=== PATIENT | female | born 1975 | race Caucasian/White ===

== ENCOUNTER 2018-11-30 12:05 | Outpatient (CLI) | payer BC | END 2018-11-30 12:06 | disposition home or self-care (01) | LOC: BICMAMMO 12:05 | PROVIDERS: ATTEND Obstetrics & Gynecology | DX: Z12.31 Encounter for screening mammogram for malignant neoplasm of breast (principal) | CPT/HCPCS: 77063; 77067 ==

== ENCOUNTER 2020-09-10 13:02 | Outpatient (CLI) | payer BC ==
--- NOTE | 2020-09-10 14:09 | CT ---
CT ABDOMEN AND PELVIS WITHOUT CONTRAST: 09/10/20 INDICATIONS: Hematuria. Comparison made to CT abdomen and pelvis 11/16/18 from [facility]. FINDINGS: Lung bases clear. Liver, spleen, and pancreas unremarkable. Stomach and duodenum unremarkable. Adrenal glands normal. Review of the kidneys show numerous bilateral nonobstructing renal calculi similar in appearance to t he prior exam. The largest on the right kidney is in the lower pole collecting structures measuring 7 to 8 mm. there is a 7 to 8 mm calculus in the lower pole collecting structures of the left kidney. N umerous smaller calculi are seen bilaterally. No hydronephrosis. The ureters are normal caliber bilaterally. No evidence of ureteral calculus ident ified. The urinary bladder is mildly distended and unremarkable. Small bowel loops appear normal caliber. Colon unremarkable. Aorta normal caliber. No adenopathy or f ree fluid. Images through the pelvis show evidence of hysterectomy. Osseous structures are unremarkable. Postoperative changes are noted at the L5-S1 level. IMPRESSION: Numerous bilateral nonobstructing renal calculi. No evidence of ureteral calculus or obstruction. POS: AGW
== END 2020-09-10 13:03 | disposition home or self-care (01) ==
LOC: BICCT 13:02
PROVIDERS: ATTEND Urology
DX: R31.9 Hematuria, unspecified (principal); N20.0 Calculus of kidney
CPT/HCPCS: 36415; 74176; 80048; 81001; 85025; 87086

== ENCOUNTER 2020-09-18 07:59 | Outpatient (CLI) | payer BC, OTHER ==
[2020-09-18 15:40] LABS: Bilirubin 3+ (Negative); Blood, Urine 25 (Negative); Clarity Clear (Clear); Glucose, Urine (Dipstick) Normal (Negative); Ketone, Urine Negative (Negative); Leukocyte Negative (Negative); Nitrite Negative (Negative); Protein, Urine (Dipstick) Negative (Neg-Trace); Specific Gravity, Urine 1.015 (1.002-1.036); Urobilinogen Normal mg/dL (Less than 2)
[2020-09-18 16:05] LABS: Hemoglobin 12.9 g/dL (12.0-16.0); Mean Corpuscular HGB CONC 33.2 G/DL (32.0-36.0); Mean Corpuscular Hemoglobin 28.7 PG (27.0-33.0); Mean Corpuscular Volume 86.2 fl (80.0-100.0); Mean Platelet Volume 9.5 fl (7.4-10.4); Platelet Count 352 10x3/uL (130-400); RBC Distribution Width 12.4 % (11.5-14.5)
[2020-09-18 16:25] LABS: Squamous Epithelial 0-3 HPF (0-3); WBC/HPF 0-3 HPF (0-3)
[2020-09-18 16:26] LABS: Bacteria/HPF Rare-Few HPF (None Seen)
[2020-09-18 17:35] LABS: Anion Gap 17 mmol/L (10-20); BUN (Urea Nitrogen) 13 mg/dL (7.0-18.7); Calc. Creatinine Clearance 0 mL/min (70-130); Calcium 9.3 mg/dL (7.8-10.44); Carbon Dioxide 23 mmol/L (22-29); Chloride 103 mmol/L (98-107); Estimated GFR-MDRD 75; Glucose 83 mg/dL (70-105); Potassium 4.1 mmol/L (3.5-5.1); Sodium 139 mmol/L (136-145)
[2020-09-19 11:54] LABS: SARS-CoV-2 MS2 Positive; SARS-CoV-2 N Gene Negative; SARS-CoV-2 S Gene Negative; SARS-CoV-2 by NAA Not Detected (NotDetected); SARS-CoV-2 orf1ab Negative
== END 2020-09-18 08:00 | disposition home or self-care (01) ==
LOC: LABBT 07:59
PROVIDERS: ATTEND Urology
DX: Z01.818 Encounter for other preprocedural examination (principal); N20.0 Calculus of kidney; Z20.828 Contact with and (suspected) exposure to other viral communicable diseases
CPT/HCPCS: 80048; 81001; 85027; 87086; 87635; 93005; 93010; U0003

== ENCOUNTER 2020-09-23 06:59 | Day surgery (SDC) | payer BC ==
[2020-09-22 10:52] VITALS: BMI 27.4
[2020-09-23] MEDS ORDERED: Levofloxacin 500 mg/D5W 100 ml Premix Bag ONE (07:49)
[2020-09-23] MEDS ORDERED: Fentanyl 100 MCG/2 ML VIAL ONE ×3 (08:15→09:58)
[2020-09-23] MEDS ORDERED: SUGAMMADEX SODIUM 200 MG/2 ML VIAL ONE (08:15)
[2020-09-23] MEDS ORDERED: Iothalamate Meglumine 60% 50 ML VIAL FS ONE (08:15)
--- NOTE | 2020-09-23 09:55 | OP ---
DATE OF PROCEDURE: 09/23/2020 PREOPERATIVE DIAGNOSIS: Bilateral renal stones. POSTOPERATIVE DIAGNOSIS: Bilateral renal stones. PROCEDURES PERFORMED: 1. Bilateral ureteroscopy with laser lithotripsy. 2. Basket extraction of stone fragments. 3. Retrograde pyelogram, intraoperative interpretation of radiologic imaging. 4. 4.8 x 24 double-J ureteral stent placement bilaterally without strings. ANESTHESIA: General. COMPLICATIONS: None. BLOOD LOSS: Minimal. DESCRIPTION OF PROCEDURE: After informed consent, the patient was taken to the operating room, transferred to the table on her own power. Anesthesia was established. A time-out was performed, showing the correct patient, site, and procedure. Preoperative antibiotics were administered. She was prepped and draped in the lithotomy position. A rigid cystoscope was advanced through the urethra into the bladder, noting normal urethra and no abnormalities of the mucosa of the bladder. The left ureteral orifice was cannulated with a wire, passed up to the level of the renal pelvis under fluoroscopic guidance. An access sheath was placed over the wire into the proximal ureter and a retrograde pyelogram performed through this, filling the renal pelvis with contrast. A flexible ureteroscope was negotiated through the access sheath into the renal pelvis. There were several stones noted throughout the collecting system with the largest sitting at the renal pelvis. All stones were treated with the 273 micron laser fiber and fragmented into small pieces. A [employer] basket was used to retrieve all clinically significant stone fragments. The collecting system was then re-examined, noting no clinically significant stone fragments remaining. The collecting system was filled with contrast before removing the scope and access sheath, leaving a wire in place. A 4.8 x 26 double-J ureteral stent was passed over the wire with a curl in the kidney and curl in the bladder under fluoroscopic guidance. The same procedure was repeated on the right side. Again noting no clinically significant stone fragments at the end and placing a 4.8 x 24 double-J ureteral stent with strings removed. Her bladder was then drained. She was then awoken from anesthesia, transferred back to her hospital bed, and taken to PACU in stable condition, where she will be discharged home upon recovery. Job ID: [id number]
[2020-09-23] MEDS ORDERED: Ketorolac Tromethamine 30 MG/ML VIAL ONE (09:58)
[2020-09-23] MEDS ORDERED: Oxybutynin 5 MG TAB ONE (09:58)
[2020-09-23] MEDS ORDERED: Morphine 2 MG/ML VIAL ONE (10:39)
[2020-09-23] MEDS ORDERED: Rocuronium Bromide 10 MG/ML (10ML VIAL) ONE (12:36)
[2020-09-23] MEDS ORDERED: Ondansetron PF 4 MG/2 ML Vial ONE (12:36)
[2020-09-23] MEDS ORDERED: PROPOFOL 200 MG/20 ML VIAL ONE (12:36)
[2020-09-23] MEDS ORDERED: Lidocaine 1% PF 5 ML VIAL ONE (12:36)
--- NOTE | 2020-09-23 13:44 | RAD ---
RETROGRADE PYELOGRAM THREE VIEWS: 09/23/20 HISTORY: Renal calculi. Stent placement. Preliminary films show some right sided renal calculi. Contrast has been injected into a nondilated l eft collecting system. Subsequent films show bilateral ureteral stent placement. IMPRESSION: Bilateral ureteral stent placement. POS: JOSE
== END 2020-09-23 11:48 | disposition home or self-care (01) ==
LOC: SDC 06:59
PROVIDERS: ATTEND Urology
PROC: 0T788DZ Dilation of Bilateral Ureters with Intraluminal Device, Via Natural or Artificial Opening Endoscopic (ICD-10-PCS; principal; 2020-09-23)
PROC: 0TC48ZZ Extirpation of Matter from Left Kidney Pelvis, Via Natural or Artificial Opening Endoscopic (ICD-10-PCS; principal; 2020-09-23)
PROC: 0TC38ZZ Extirpation of Matter from Right Kidney Pelvis, Via Natural or Artificial Opening Endoscopic (ICD-10-PCS; principal; 2020-09-23)
DX: N20.0 Calculus of kidney (principal); E89.0 Postprocedural hypothyroidism; F32.9 Major depressive disorder, single episode, unspecified; G47.00 Insomnia, unspecified; F41.9 Anxiety disorder, unspecified; Z79.899 Other long term (current) drug therapy; Z88.5 Allergy status to narcotic agent
CPT/HCPCS: 74420; 82365; 88300; J1885; J1956; J2270; J2405; J2704; J3010